=== PATIENT | male | born 1960 | race Caucasian/White ===

== ENCOUNTER 2017-10-24 02:36 | Inpatient (IN) | payer OTHER ==
--- NOTE | 2017-10-16 11:52 | History & Physical Pre-Op ---
General Information and HPI MD Statement: I have seen and personally examined JAS VERDUZCO and documented this H&P. The patient is a 56 year old M who presented with a patient stated chief complaint of low back pain for "years" radiating to bilateral lower extremities R>L with weakness. Source of Information: patient Exam Limitations: no limitations History of Present Illness: Jas is a 56-year-old gentleman who has had bilateral low back pain for "years ". He states the pain radiates from his low back and into bilateral lower extremities which is worse with standing or walking with symptoms of classic neurogenic claudication. He states the right leg is more affected than the left with associated numbness and pain in his posterior thigh and calf. He does admit to weakness in bilateral lower extremities with associated buckling. His symptoms are relieved when sitting or laying down. His MRI shows complete block at L3-4 and severe spinal stenosis at L4-5. Due to his progressive pain and weakness as well as his MRI findings, Jas wants nothing more to do with nonsurgical treatment and has been consented for a posterior lumbar decompression and fusion with iliac crest bone grafting L3-S1 on 10/24/2017. 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 FATHER, ; Cause: Unknown cause of morbidity or mortality. SISTER (Diabetes). Psychosocial History Where Do You Live? Home Who Do You Live With? 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 Exam & Diagnostic Data Last 24 Hrs of Vital Signs/I&O Height: 5'5" Weight: 165lbs. Physical Exam General Appearance Alert, Oriented X3, Cooperative, Moderate Distress Skin No Rashes, No Breakdown, No Significant Lesion HEENT Atraumatic, PERRLA, EOMI, Mucous Membr. moist/pink Neck Supple, No JVD, No thryomegaly Lymphatic Cervical nl Cardiovascular Regular Rate, Normal S1, Normal S2, No Murmurs Lungs Clear to Auscultation Abdomen Normal Bowel Sounds, Soft, No Tenderness Neurological Normal Speech, Atrophy of the quads bilaterally, Absent patellar reflexes alanna., +2 alanna. achilles reflexes Extremities No Clubbing, No Cyanosis, No Edema Medication List Current Psychiatric Med(s): Tylenol 500mg 1 po q 4-6 hrs prn pain Assessment/Plan Assessment/Plan: Assessment: Severe spinal stenosis at L3-4 and L4-5 and moderate stenosis at L5- S1 Plan: Jas is scheduled for a posterior lumbar decompression fusion with iliac crest bone grafting L3-S1 on 10/24/2017. We discussed the procedure in full detail as well as the pre-and postoperative course, follow-up care, and anticipated recovery. We also discussed the do's and don'ts and postoperative discharge instructions. We discussed the alternatives, benefits, and risks, not to exclude, , paralysis, infection, bleeding, continued pain, failure of the surgery, need for future surgery, DVT, vascular injury, CSF leak, etc., and given these risks, he still wishes to proceed. He has been seen by his primary care physician followed by a fast food cook for preoperative clearance. He is scheduled for an echocardiogram, stress test, and carotid duplex. Any changes in this patient's plan is based on this patient's outpatient clinical presentation. As Ranked By This Provider Problem List: 1. TIA (transient ischemic attack) 2. COPD (chronic obstructive pulmonary disease) 3. PVD (peripheral vascular disease) 4. Hypertension 5. Hyperlipidemia Copies To: Pramod SANCHEZ,Gasper Attending MD Review Statement Attending Statement Attending MD Statement: examined this patient, discuss w/resident/PA/BIOMETRICIAN, agreed w/resident/PA/BIOMETRICIAN, reviewed images
[~2017-10-24] VITALS: Ht 167.6 cm; Wt 75.4 kg
--- NOTE | 2017-10-24 12:47 | Operative Report ---
Operative/Inv Procedure Report Surgery Date: 10/24/17 Name of Procedure: Lumbar laminectomies L3 4 4551 bilateral lateral intertransverse process fusion L3 to S1 bilateral. Harvesting of morselized iliac crest right posterior iliac crest. Reconstruction of crest with Master graft. Use of fluoroscopy neuro lysis neuro lysis right side L3 and IV nerve roots Pre-Operative Diagnosis: Severe spinal stenosis and foraminal stenosis L3 4 4 5 moderate stenosis L5-S1 Post-Operative Diagnosis: Same Estimated Blood Loss: 200cc Surgeon/Wellness Guide: Pramod SANCHEZ,Gasper Coffman M.D. Anesthesia: general endotracheal tube Operative/Procedure Note Note: After adequate general anesthesia was achieved the patient was placed in the prone position. The back was sterilely prepped and draped. An incision was made in the midline and carried down over the dorsal elements with electrocautery and a metallic object was placed and fluoroscopy was used to identify surgical level. The dissection was carried from the inferior aspect of the lamina of L3 to this. Aspect of the lamina of S1 bilaterally. The high- speed bur was used to thin the lamina bilaterally and the spinous processes were removed with the Leksell from L3 to L5 and left intact at L5-S1. After thickening of the cortices of the lamina the curettes and Kerrisons were used to perform the laminectomies bilaterally over the inferior aspect of L3 the entire aspect of L4 the superior aspect of L5 the inferior aspect of L5 and the superior aspect of S1 bilaterally. There is severe thickening of the mentum flavum at L3 4 and L4 5 bilaterally and severe foraminal stenosis which was all debrided. Partial facetectomies were performed involving approximately 20% of the foramen bilaterally. There is a large disc herniation laterally at L3 4 on the left. The disc was easily removed the nerves on the right side had a great deal of fibrous adhesions and a neuro lysis was performed on the right side at L3 and L4 nerve roots. The left side nerve roots were intact. An incision was made over the right posterior iliac crest the Shahrzad retractor was placed lateral to the crest and the osteotomes and curet were used to collect morcellized corticocancellous and cancellous bone the wound was then irrigated packed with Master graft. Gelfoam was applied it was again irrigated and a closure the subcutaneous tissue and fascia was performed with absorbable suture the skin was closed with urszula. The midline retractors were placed and was copiously irrigated the lateral intertransverse process region was decorticated with the high-speed bur from L3 to S1 bilaterally and bone graft was packed laterally over this region the wound was again irrigated Gelfoam was laid over the laminotomy site and a closure of the lumbosacral fashion subcutaneous tissues performed with absorbable suture the skin was closed with urszula after placement sterile dressings the patient was log rolled on to the stretcher and taken the recovery room
--- NOTE | 2017-10-24 14:40 | Patient Discharge Instructions ---
Acute Coronary Syndrome Inclusion Criteria At DC or during hospital stay patient has or had the following: ACS DIAGNOSIS No Discharge Core Measures Meds if any: Prescribed or Continued at Discharge Meds if any: NOT Prescribed or Continued at Discharge Congestive Heart Failure Inclusion Criteria At DC or during hospital stay patient has or had the following: CHF DIAGNOSIS No Discharge Core Measures Meds if any: Prescribed or Continued at Discharge Meds if any: NOT Prescribed or Continued at Discharge Cerebrovascular accident Inclusion Criteria At DC or during hospital stay patient has or had the following: CVA/TIA Diagnosis No Discharge Core Measures Meds if any: Prescribed or Continued at Discharge Meds if any: NOT Prescribed or Continued at Discharge Venous thromboembolism Inclusion Criteria VTE Diagnosis No VTE Type NONE VTE Confirmed by (Test) NONE Discharge Core Measures - Per Current guidelines, there needs to be overlap - treatment for the first 5 days of Warfarin therapy. - If discharged on Warfarin prior to 5 days of - overlap therapy, the patient will need to be - assessed for post discharge needs including - *Post discharge parental anticoagulation - *Warfarin and/or parental anticoagulation education - *Follow up date to check INR post discharge At least 5 days overlap therapy as Inpatient No Meds if any: Prescribed or Continued at Discharge Note: Overlap Therapy is Warfarin and Anticoagulant Meds if any: NOT Prescribed or Continued at Discharge
--- NOTE | 2017-10-24 14:40 | RADIOLOGY REPORT ---
EXAMINATION: CR ABDOMEN/INTRAOPERATIVE FLUOROSCOPY CLINICAL INDICATION: Lumbar laminectomy L3-S1. Fusion in OR. COMPARISON: None TECHNIQUE/FINDINGS: Fluoroscopic equipment was dedicated to the operating room for the performance of an intraoperative procedure. Single spot film was acquired and are archived in PACS. Please refer to operative notes for procedural detail. FLUOROSCOPY TIME: 0.01 minutes. IMPRESSION: Administrative dictation for intraoperative fluoroscopy and image archiving in PACS. Please refer to operative notes for details.
[2017-10-24] MEDS ORDERED: OS-CAL 500+D31 EAC1 PO (14:43)
[2017-10-24] MEDS ORDERED: COLACE100 M1 PO (14:43)
[2017-10-24] MEDS ORDERED: VITAMIN D31000 UNI2 PO (14:43)
[2017-10-24] MEDS ORDERED: MILK OF MA400 MG/52 PO (14:43)
[2017-10-24] MEDS ORDERED: MULTIVITAMINS1 EAC9 PO (14:43)
[2017-10-24] MEDS ORDERED: TYLENOL EXTRA500 M2 PO (14:43)
[2017-10-24] MEDS ORDERED: DULCOLAX10 M1 RC (14:43)
[2017-10-24] MEDS ORDERED: OXYCODONE HCL5 M1 PO (14:43)
--- NOTE | 2017-10-24 14:59 | Cons- Medical ---
LilliGeoff 10/24/17 1459: General Information and HPI Consulting Request Date of Consult: 10/24/17 Requested By: Gasper Benavidez MD Reason for Consult: Co- management Source of Information: patient, old records Exam Limitations: no limitations History of Present Illness: is a 56 yo man with PMHx. of TIA, hypertension, hyperlipidemia, DVT , COPD, chronic back pain, disc herniation, spinal stenosis, osteoarthritis, sciatica, alcohol dependence, diabetes, presented to emergency department for s/ p Lumbar laminectomies L3 4 4551 bilateral lateral intertransverse process fusion L3 to S1 bilateral. Today is day 0 postoperatively Patient drinks alcohol daily, he drinks 2 beers aday, he is every day smoker. Medicine consult requested for comanagement given multiple comorbidities. Patient seen after the procedure, he denies any chest pain, SOB, dizziness, palpitation, his only complaint was back pain, he was medicated with oxycontin and Morphine. Allergies/Medications Allergies: Coded Allergies: No Known Allergies (10/16/17) Review of Systems Review of Systems Constitutional: Reports: no symptoms. EENTM: Reports: no symptoms. Cardiovascular: Reports: no symptoms. Respiratory: Reports: no symptoms. GI: Reports: no symptoms. Genitourinary: Reports: no symptoms. Musculoskeletal: Reports: back pain. Skin: Reports: no symptoms. Neurological/Psychological: Reports: no symptoms. 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 FATHER, ; Cause: Unknown cause of morbidity or mortality. SISTER (Diabetes). Psychosocial History Where Do You Live? Home Who Do You Live With? 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 Exam & Diagnostic Data Last 24 Hrs of Vital Signs/I&O Vital Signs Date Time Temp Pulse Resp B/P B/P Pulse O2 O2 Flow FiO2 Mean Ox Delivery Rate 10/24 1817 Room Air Room Air 10/24 1502 94 Room Air 10/24 1502 97.8 78 18 142/82 94 Room Air Intake & Output 10/24 1600 10/24 0800 10/24 0000 Intake Total Output Total Balance Patient 169 lb Weight Weight Bed scale Measurement Method Physical Exam General Appearance: well developed/nourished, no apparent distress, alert, awake Head: atraumatic, normal appearance Neck: normal inspection, supple Respiratory: normal breath sounds, chest non-tender, no respiratory distress Cardiovascular: regular rate/rhythm, normal peripheral pulses Extremities: normal inspection, normal capillary refill, no edema Last 24 Hrs of Labs/Lane: No labs Assessment/Plan Assessment/Plan is a 56 yo man with PMHx. of TIA, hypertension, hyperlipidemia, DVT , COPD, chronic back pain, disc herniation, spinal stenosis, osteoarthritis, sciatica, alcohol dependence, diabetes, presented to emergency department for s/ p Lumbar laminectomies L3 4 4551 bilateral lateral intertransverse process fusion L3 to S1 bilateral. Today is day 0 postoperatively Assessment: #S/P Lumbar laminectomies #Hx. of alcohol dependence #Hx, of HTN/HLD #Hx. of COPD #Hx. of DM #Hx. of DVT Plan: * Pain amngt as orderd by surgical team * CIWA protocol, Ativan per CIWA * PT * Accucheck * DVT ppx Problem List: 1. Spinal stenosis of lumbar region at multiple levels 2. S/P laminectomy with spinal fusion Consult Acknowledgment - Thank you for your consult request. Reji Santoyo MD 10/24/172202: General Information and HPI Allergies/Medications Home Med List: Acetaminophen (Tylenol Extra Strength) 500 MG TABLET 1 TAB PO TID PRN TEMP>101 Aspirin (Aspirin*) 81 MG TAB.CHEW 81 MG PO DAILY PVD Atorvastatin Calcium 40 MG TABLET 40 MG PO 1700 HYPERLIPIDEMIA Bisacodyl (Dulcolax) 10 MG SUPP.RECT 1 SUP RC DAILY PRN CONSTIPATION Calcium Carbonate/Vitamin D3 (Os-Devyn 500+D3 Caplet) 500 MG-200 TABLET 1 TAB PO BID [facility] Cholecalciferol (Vitamin D3) 1,000 UNIT TABLET 1 TAB PO DAILY [facility] Docusate Sodium (Colace) 100 MG CAPSULE 1 CAP PO BID PRN CONSTIPATION Magnesium Hydroxide (Milk Of Magnesia) 400 MG/5 ML ORAL.SUSP 5 ML PO Q8P PRN CONSTIPATION Multiple Vitamin (Multivitamins) 1 EACH TABLET 1 TAB PO DAILY GENER[facility] Oxycodone HCl 5 MG TABLET 5 MG PO Q4 HRS NEEDED PRN PAIN SCALE 1-3 (MILD) 1-2 TABS PO Q 4-6 HRS PRN PAIN Assessment/Plan Consult Acknowledgment - Thank you for your consult request. Attending MD Review Statement Attending Statement Attending MD Statement: examined this patient, discuss w/resident/PA/REPAIR COIL WINDER, agreed w/resident/PA/REPAIR COIL WINDER, discussed with family, reviewed EMR data (avail), amended to note Attending Assessment/Plan: The patient is a 56 yo male with h/o TIA, HTN, COPD, HL, DVT, OA, pre-diabetes, chronic back pain (spinal stenosis), and EtOH overuse who presented for elective L3-S1 laminectomies. His pre-operative evaluation was performed by Dr. Colin ( cardiology in [facility]) who had performed a stress test (was submaximal due to leg discomfort), ECHO cardiogram (mild diastolic dysfunction), and carotid US (< 50% stenosis). He was noted to have no exertional symptoms (angina/dyspnea) and was felt able to tolerate surgery. Note systolic pressure did drop to 80's during surgery. Post operatively the patient had no complaints except usual post op pain. Was alert & oriented. No chest pain, palpitations, weakness, etc. Physical Exam: VS: T 97.8, P 78, R 18, BP 142/82, PO 94% RA HEENT: eris- moist mucosa w/o lesions Neck: no bruits or JVD Cor: RRR nl S1, S2 w/o murm Abd: BS+, soft, NT, - HSM Ext: no edema Neuro: alert & oriented, non-focal exam, LLE neuro exam not done Impression/Plan: #Spinal Stenosis- s/p lumbar laminectomies as above. Plan: Post op care as per surgery. #h/o TIA/Carotid disease/PVD- no significant carotid stenosis on carotid US done pre-op. Unclear that patient is not on statin or ASA as OP (would hold ASA with current surgery anyway). Details of TIA are unknown. Note- the patient has some carotid plaques, however not hemodynamically significant. Had some claudication symptoms with stress test. Plan: Will review old records and evaluate why patient is not on statin. Avoid hypotension with h/o carotid plaques. #h/o EtOH Overuse- no h/o withdrawal in past. No evidence of withdrawal at present. 3-4 beers/day. Plan: Agree with MVI, folate, thiamine po- CIWA and Ativan prn. Watch closely for withdrawal symptoms. #COPD- by history, however lungs are clear and pulse ox mildly reduced (probably due to atelectasis). No CXR done. Plan: Monitor pulse ox and pulmonary exam. Agree with incentive spirometry. If develops wheeze or pulmonary symptoms- TRC nebs. #HTN- by history, however no meds reported. BP good at present. Plan: Monitor BP as per usual post op protocol. #Pre-Diabetes- by history. No meds. Plan: Follow glucoscans. #Cardiac- Pre-op ECHO shows mild diastolic dysfunction, no h/o CHF/angina/ exertional symptoms and negative pre-op stress test. Report indicates submaximal HR due to leg symptoms. No pharmacologic stress done. EKG normal. RCRI is low. Plan: Will observe. No need for cardiac monitoring. #H/O DVT- by history. He is at increased risk of clot due to history, recent surgery, immobility. Unable to use Lovenox/heparin due to laminectomy. Plan: ALPS for DVT prophylaxis and monitor symptoms.
[2017-10-24 15:02] VITALS: BP 142/82
--- NOTE | 2017-10-24 15:25 | PN- Neurosurgical ---
Subjective Subjective: POST-OP CHECK pt in bed laying flat, minimal pain. deneis paresthesias. No N/V. has not voided yet no cp/sob/cunningham Objective Vital Signs and I&Os Intake & Output 10/24 1600 10/24 0800 10/24 0000 10/23 1600 10/23 0800 10/23 0000 Intake Total Output Total Balance Patient 164 lb Weight Physical Exam: gen- nad resp- good effort, mild rhonchi on left side cardio- rrr abd- soft, NT ext- distal sensory and motor function intact. strength equal in lower extremities. 1+ PT pulse bilat Current Medications: Current Medications Sig/Thien Start time Last Medication Dose Route Stop Time Status Admin Acetaminophen 650 MG Q4P PRN 10/24 1430 AC PO Bisacodyl 10 MG DAILY NEEDED PRN 10/24 1430 AC ND Calcium 600 MG BID 10/24 2200 AC PO Cefazolin Sodium 1,000 MG IQ8 10/24 1600 AC IV 10/25 0801 Cefazolin Sodium 2,000 MG ONCE 10/24 0000 NR IV 10/24 2359 Cholecalciferol 1,000 IU DAILY 10/25 1000 AC PO Docusate Sodium 100 MG TID 10/24 1600 AC PO Lactated Ringer's 1,000 ML Q10H 10/24 1445 AC IV Lorazepam 0.5 MG Q4 PRN 10/24 1445 AC PO 10/31 1444 Magnesium Hydroxide 30 ML Q8P PRN 10/24 1445 AC PO Morphine Sulfate 1 MG Q3P PRN 10/24 1430 AC IV Multivitamins 1 TAB DAILY 10/25 1000 AC PO Ondansetron HCl 4 MG Q6P PRN 10/24 1430 AC IV Oxycodone HCl 5 MG Q4 HRS NEEDED PRN 10/24 1445 AC PO Oxycodone HCl 10 MG Q4 HRS NEEDED PRN 10/24 1445 AC PO Trimethobenzamide HCl 200 MG Q6P PRN 10/24 1430 AC IM Assessment/Plan Assessment/Plan 56yo M SP L3-S1 lami and fusion with bone from iliac crest POD0. Stable. Per pt, he is a smoker and drinks on average 2 beers per day but it used to be more. Physical therapy- [facility] Pain management with oxycodone and morphine Adivan prn ordered if pt starts detoxing from ETOH may consider nicotine patch if needed paolo-op ABX for 24h\ dvt ppx- ALPs and early ambulation hx of htn and hld but not treated with medication reg diet- will dc IVF in AM Core Measures Venous Thromboembolism VTE Risk Factors Surgery No Mechanical VTE Prophylaxis d/t N/A MechProphylax Ordered No VTE Pharm Prophylaxis d/t Surgical Contraindication
--- NOTE | 2017-10-24 15:27 | Admission Core Measures ---
Acute Coronary Syndrome (CM) ACS Core Measures Acute Coronary Syndrome Diagnosis No Congestive Heart Failure (NEW) CHF Core Measures Congestive Heart Failure Diagnosis No Cerebrovascular Accident (NEW) CVA Core Measures CVA/TIA Diagnosis No Venous Thromboembolism VTE Core Mary (View Protocol) VTE Risk Factors Surgery No Mechanical VTE Prophylaxis d/t N/A MechProphylax Ordered No VTE Pharm Prophylaxis d/t Surgical Contraindication Problem List As ranked by this Provider includes Assessment & Plan 1. Spinal stenosis of lumbar region at multiple levels HOME MEDS Home Med List Acetaminophen (Tylenol Extra Strength) 500 MG TABLET 1 TAB PO TID PRN TEMP>101 Bisacodyl (Dulcolax) 10 MG SUPP.RECT 1 SUP RC DAILY PRN CONSTIPATION Calcium Carbonate/Vitamin D3 (Os-Devyn 500+D3 Caplet) 500 MG-200 TABLET 1 TAB PO BID [facility] Cholecalciferol (Vitamin D3) 1,000 UNIT TABLET 1 TAB PO DAILY [facility] Docusate Sodium (Colace) 100 MG CAPSULE 1 CAP PO BID PRN CONSTIPATION Magnesium Hydroxide (Milk Of Magnesia) 400 MG/5 ML ORAL.SUSP 5 ML PO Q8P PRN CONSTIPATION Multiple Vitamin (Multivitamins) 1 EACH TABLET 1 TAB PO DAILY [facility] Oxycodone HCl 5 MG TABLET 5 MG PO Q4 HRS NEEDED PRN PAIN SCALE 1-3 (MILD)
[2017-10-24 22:00] VITALS: BP 150/64
[2017-10-25] VITALS (7 sets, daily range): BP systolic 150–170; BP diastolic 60–90
--- NOTE | 2017-10-25 07:24 | PN- Neurosurgical ---
Subjective Subjective: Patient with complaints of a lot of pain, right side low back radiating into the right buttock, states he did not sleep most of the night, pain medication has been minimally effective. He denies any numbness or weakness, he has no bowel or bladder incontinence, he is urinating without difficulty Objective Vital Signs and I&Os Vital Signs Date Time Temp Pulse Resp B/P B/P Pulse O2 O2 Flow FiO2 Mean Ox Delivery Rate 10/25 0000 98.3 88 18 150/64 10/24 2200 98.3 88 2 150/64 94 Room Air 10/24 1817 Room Air Room Air 10/24 1502 94 Room Air 10/24 1502 97.8 78 18 142/82 94 Room Air Intake & Output 10/25 0810/25 0000 10/24 1600 10/24 0810/24 0000 10/23 1600 Intake Total 830 480 680 Output Total 800 750 Balance 30 -270 680 Intake, IV 810 Intake, Oral 20 480 680 Output, Urine 800 750 Patient 169 lb 164 lb Weight Weight Bed scale Measurement Method Physical Exam: Well-developed well-nourished, appears uncomfortable HEENT: Atraumatic, extraocular motion intact Neck: Supple, no lymphadenopathy Respiratory: No respiratory distress Back: Dressing clean dry and intact Extremities: No edema, no calf pain bilateral lower extremities are neurovascularly intact with sensation motor grossly intact. Neuro: Alert and oriented x3 Psych: Mood affect normal, normal memory normal judgment. Skin: Warm and dry, no rash on exposed skin Assessment/Plan Assessment/Plan 56yo M POSTOP DAY #1 STATUS POST L3-S1 lami and fusion with bone from iliac crest POD0. Stable. Physical therapy- WBAT Inadequate pain control, will increased medications Continue CIWA due to EtOH use chronically, appreciate medicine follow-up paolo-op ABX for 24h dvt ppx- ALPs and early ambulation hx of htn and hld but not treated with medication reg diet DC IV fluids Dressing change postop day 2 Core Measures Venous Thromboembolism VTE Risk Factors Surgery No Mechanical VTE Prophylaxis d/t N/A MechProphylax Ordered No VTE Pharm Prophylaxis d/t Surgical Contraindication
--- NOTE | 2017-10-25 08:34 | PN- Medicine Consult ---
[facility] Assessment/PlanMedical Consult Assessment/Plan Assessment: is a 56 yo man with PMHx. of TIA, hypertension, hyperlipidemia, DVT , COPD, chronic back pain, disc herniation, spinal stenosis, osteoarthritis, sciatica, alcohol dependence, diabetes, presented to emergency department for s/ p Lumbar laminectomies L3 4 4551 bilateral lateral intertransverse process fusion L3 to S1 bilateral. Today is day 1 postoperatively Plan: is a 56 yo man with PMHx. of TIA, hypertension, hyperlipidemia, DVT , COPD, chronic back pain, disc herniation, spinal stenosis, osteoarthritis, sciatica, alcohol dependence, diabetes, presented to emergency department for s/ p Lumbar laminectomies L3 4 4551 bilateral lateral intertransverse process fusion L3 to S1 bilateral. Today is day 0 postoperatively Assessment: #S/P Lumbar laminectomies #Hx. of alcohol dependence #Hx, of HTN/HLD #Hx. of COPD #Hx. of DM #Hx. of DVT Plan: * Pain amngt as orderd by surgical team (Would suggest adding long acting opiod and morphine for breakthrough) * CIWA protocol, Ativan per CIWA * PT * Accucheck * DVT ppx Family was asking about discharge plan, I explained that it's per surgical team, if the desicion made regarding STR case management will discuss with them. Problem List: 1. S/P laminectomy with spinal fusion Subjective Subjective: Seen and examined, still in pain. His family at bedside, he is using his spirometry No bowel movement BUT passing tien CIWA is 0 overnight and today Vitals stable No events overnight Review of Systems Constitutional: Reports: no symptoms. EENTM: Reports: no symptoms. Cardiovascular: Reports: no symptoms. Respiratory: Reports: no symptoms. Gastrointestinal: Reports: no symptoms. Genitourinary: Reports: no symptoms. Musculoskeletal: Reports: no symptoms. Skin: Reports: no symptoms. Neurological/Psychological: Reports: no symptoms. Hematologic/Endocrine: Reports: no symptoms. Immunologic/Allergic: Reports: no symptoms. Objective Last 24 Hrs of Vital Signs/I&O Vital Signs Date Time Temp Pulse Resp B/P B/P Pulse O2 O2 Flow FiO2 Mean Ox Delivery Rate 10/25 0726 98.3 85 18 152/90 93 Room Air 10/25 0000 98.3 88 18 150/64 0404 2200 98.3 88 2 150/64 94 Room Air 04 1817 Room Air Room Air 10/24 1502 94 Room Air 10/24 1502 97.8 78 18 142/82 94 Room Air Intake & Output 10/25 1600 04/ 0800 04/ 0000 Intake Total 830 1160 Output Total 800 750 Balance 30 410 Intake, IV 810 Intake, Oral 20 1160 Output, Urine 800 750 Patient 166 lb Weight Physical Exam General Appearance: well developed/nourished, no apparent distress, alert, awake , mild distress Head: atraumatic, normal appearance Neck: normal inspection, supple Cardiovascular: regular rate/rhythm, normal peripheral pulses Respiratory: normal breath sounds, chest non-tender, no respiratory distress Extremities: normal inspection, no edema Current Medications: Current Medications Sig/Thien Start time Last Medication Dose Route Stop Time Status Admin Acetaminophen 650 MG Q4P PRN 10/24 1430 AC PO Bisacodyl 10 MG DAILY NEEDED PRN 10/24 1430 AC WA Calcium 600 MG BID 10/24 2200 AC 10/25 PO 0842 Cefazolin Sodium 1,000 MG IQ8 10/24 1600 DC 10/25 IV 10/25 0801 0841 Cefazolin Sodium 2,000 MG ONCE 10/24 0000 DC IV 10/24 2359 Cholecalciferol 1,000 IU DAILY 10/25 1000 AC 10/25 PO 0841 Docusate Sodium 100 MG TID 10/24 1600 AC 10/25 PO 0843 Influenza Virus 0.5 ML ONCE ONE 10/24 1615 DC 10/24 Vaccine IM 10/24 1616 2048 Lactated Ringer's 1,000 ML Q10H 10/24 1445 DC 10/25 IV 0533 Lorazepam 0.5 MG Q4 PRN 10/24 1445 AC PO 10/31 1444 Magnesium Hydroxide 30 ML Q8P PRN 10/24 1445 AC PO Morphine Sulfate 2 MG Q3P PRN 10/25 0730 AC 10/25 IV 0841 Morphine Sulfate 1 MG Q3P PRN 10/24 1430 DC 10/25 IV 0344 Multivitamins 1 TAB DAILY 10/25 1000 AC 10/25 PO 0843 Ondansetron HCl 4 MG Q6P PRN 10/24 1430 AC IV Oxycodone HCl 10 MG Q4 HRS NEEDED PRN 10/25 0730 AC PO Oxycodone HCl 15 MG Q4 HRS NEEDED PRN 10/25 0730 AC / PO 1004 Oxycodone HCl 5 MG Q4 HRS NEEDED PRN 10/24 1445 DC PO Oxycodone HCl 10 MG Q4 HRS NEEDED PRN 10/24 1445 DC / PO 0529 Trimethobenzamide HCl 200 MG Q6P PRN 10/24 1430 AC IM Results Last 24 Hrs Lab/Lane Results: No labs Reji Santoyo MD 10/25/175: Attending MD Review Statement Attending Sign Off Attending Cosign Statement: I have: examined this patient, reviewed avalbl EMR data, discussd w/resident/PA/ SHRIMP PEELER, discussed mgmt plan w/radha, discussed mgmt plan w/pt, agreed w/resident/PA/SHRIMP PEELER , amended to note. Other Findings: The patient was seen and discussed with house staff, nursing, and surgical PA. Has h/o TIA approximately 2 years ago and ?claudication symptoms with stress test (?PVD). Has some carotid stenosis. Family states he was to have been on ASA , however he never took. Should be on ASA 81 mg daily along with Atorvastatin 40 mg daily (PA to order). No signs of EtOH withdrawal at present. Still having significant low back pain when the patient stood up, however no weakness in legs noted by Dr. Benavidez. Will continue to follow.
[2017-10-25] MEDS ORDERED: ASPIRIN81 M4 PO (14:55)
[2017-10-25] MEDS ORDERED: ATORVASTATIN CA40 M1 PO (14:55)
--- NOTE | 2017-10-25 16:13 | PN- Orthopedic ---
Subjective Subjective: Patient comfortable now. + c/o LBP radiating to right bone graft site earlier. + intermittnet right leg numbness seamingly postional. No preop leg pain. Julieta. po. OOB with Dr. and Nursing. + appetite. No N/V. + flatus and voiding without difficulty. Review of Systems: Remarkable for the above complaints. Objective Vital Signs and I&Os Vital Signs Date Time Temp Pulse Resp B/P B/P Pulse O2 O2 Flow FiO2 Mean Ox Delivery Rate 10/25 1523 98.0 96 20 160/70 92 10/25 1145 98.0 86 20 150/60 91 10/25 0800 Room Air 10/25 0726 98.3 85 18 152/90 93 Room Air 10/25 0000 98.3 88 18 150/64 10/24 2200 98.3 88 2 150/64 94 Room Air 10/24 1817 Room Air Room Air Intake & Output 10/25 1600 10/25 0800 10/25 0000 10/24 1600 10/24 0800 10/24 0000 Intake Total 980 830 480 680 Output Total 300 800 750 Balance 680 30 -270 680 Intake, IV 100 810 Intake, Oral 880 20 480 680 Number 0 Bowel Movements Output, Urine 300 800 750 Patient 166 lb 169 lb Weight Weight Bed scale Measurement Method Physical Exam General Appearance: no apparent distress Respiratory: normal breath sounds, no respiratory distress Cardiovascular: regular rate/rhythm Abdomen: normal bowel sounds, soft, non-tender Back: Incision C/D/I. Neurologic/Psychiatric: Neurovascularly stable with no new or worsening gross motor or sensory loss in alanna. lower extremities. Skin: intact, normal color, warm/dry Assessment/Plan Assessment/Plan Assessment: s/p PLDF L3-S1 with ICBG Plan: Continue Roxicodone and Morphine prn Ice prn Continue Ativan prn PT for ambulation Will F/U in am Started ASA and Atorvastatin per [facility] recs. Problem List: 1. TIA (transient ischemic attack) 2. COPD (chronic obstructive pulmonary disease) 3. PVD (peripheral vascular disease) 4. Hypertension 5. Hyperlipidemia 6. Spinal stenosis of lumbar region at multiple levels Core Measures Venous Thromboembolism VTE Risk Factors Surgery No Mechanical VTE Prophylaxis d/t N/A MechProphylax Ordered No VTE Pharm Prophylaxis d/t Surgical Contraindication Attending MD Review Statement Attending Statement Attending MD Statement: examined this patient, discuss w/resident/PA/LOGISTICS OPERATIONS DIRECTOR, agreed w/resident/PA/LOGISTICS OPERATIONS DIRECTOR
[2017-10-26] VITALS (9 sets, daily range): BP systolic 124–156; BP diastolic 60–80
--- NOTE | 2017-10-26 08:44 | PN- Medicine Consult ---
Geoff Reeder 10/26/17 0843: Assessment/PlanMedical Consult Assessment/Plan Assessment: is a 56 yo man with PMHx. of TIA, hypertension, hyperlipidemia, DVT , COPD, chronic back pain, disc herniation, spinal stenosis, osteoarthritis, sciatica, alcohol dependence, diabetes, presented to emergency department for s/ p Lumbar laminectomies L3 4 4551 bilateral lateral intertransverse process fusion L3 to S1 bilateral. Today is day 2 postoperatively Plan: is a 56 yo man with PMHx. of TIA, hypertension, hyperlipidemia, DVT , COPD, chronic back pain, disc herniation, spinal stenosis, osteoarthritis, sciatica, alcohol dependence, diabetes, presented to emergency department for s/ p Lumbar laminectomies L3 4 4551 bilateral lateral intertransverse process fusion L3 to S1 bilateral. Today is day 2 postoperatively Assessment: #S/P Lumbar laminectomies #Hx. of alcohol dependence #Hx, of HTN/HLD #Hx. of COPD #Hx. of DM #Hx. of DVT Plan: * Pain amngt as orderd by surgical team (Would suggest adding long acting opiod and morphine for breakthrough) * CIWA protocol, Ativan per CIWA * PT * Accucheck * DVT ppx Problem List: 1. S/P laminectomy with spinal fusion Subjective Subjective: seen and examined no events over night c/o sever back pain Objective Last 24 Hrs of Vital Signs/I&O Vital Signs Date Time Temp Pulse Resp B/P B/P Pulse O2 O2 Flow FiO2 Mean Ox Delivery Rate 04/06 0800 96 Nasal 2.0L Cannula / 0700 98.4 94 18 134/74 94 Nasal 2.0L Cannula /06 0600 98.5 89 20 124/74 04/06 0400 98.5 89 20 124/74 04/06 0221 98.5 89 20 124/74 93 Nasal 2.0L Cannula 04/06 0200 98.5 89 20 124/74 04/06 0000 98.2 93 18 156/70 04/06 0000 94 Nasal 2.0L Cannula / 2323 98.2 / 2323 98.2 / 2245 100.2 93 18 156/70 95 Nasal 2.0L Cannula / 2217 102.4 92 22 170/80 94 Nasal 2.0L Cannula 10/25 2204 102.4 10/25 220 85 Room Air 10/25 1956 98.3 10/25 1819 99.3 90 20 160/72 92 Room Air 10/25 1600 Room Air 10/25 1523 98.0 96 20 160/70 92 Intake & Output 10/26 1600 10/26 0800 04 0000 Intake Total 460 800 Output Total 1800 1650 Balance -1340 -850 Intake, Oral 460 800 Output, Urine 1800 1650 Current Medications: Current Medications Sig/Thien Start time Last Medication Dose Route Stop Time Status Admin Acetaminophen 650 MG .STK-MED ONE 10/26 2203 DC PO 10/25 220 Acetaminophen 650 MG Q4P PRN 10/24 1430 AC 10/25 PO 220 Aspirin 81 MG DAILY 10/25 1453 AC 10/26 PO 0907 Atorvastatin Calcium 40 MG 1700 10/25 1700 AC 10/25 PO 1742 Bisacodyl 10 MG DAILY NEEDED PRN 10/24 1430 AC CO Calcium 600 MG BID 10/24 2200 AC 10/26 PO 0907 Cholecalciferol 1,000 IU DAILY 10/25 1000 AC 10/26 PO 0907 Docusate Sodium 100 MG TID 10/24 1600 AC 10/26 PO 0907 Lorazepam 0 Q1P PRN 10/25 1845 AC IV Lorazepam 0.5 MG Q4 PRN 10/24 1445 AC 10/25 PO 10/31 1444 1933 Magnesium Hydroxide 30 ML Q8P PRN 10/24 1445 AC PO Morphine Sulfate 2 MG Q3P PRN 10/25 0730 DC 10/26 IV 0911 Multivitamins 1 TAB DAILY 10/25 1000 AC 10/26 PO 0906 Ondansetron HCl 4 MG Q6P PRN 10/24 1430 AC IV Oxycodone HCl 10 MG Q4 HRS NEEDED PRN 10/25 0730 AC PO Oxycodone HCl 15 MG Q4 HRS NEEDED PRN 10/25 0730 AC 10/26 PO 1319 Patient Medication 1 ED ONE ONE 10/26 1330 DC Teaching ED 10/26 1331 Trimethobenzamide HCl 200 MG Q6P PRN 10/24 1430 AC IM Results Last 24 Hrs Lab/Lane Results: Laboratory Tests 10/26/17 1057: CBC w Diff NO MAN DIFF REQ, RBC 4.34 L, MCV 87.2, MCH 29.4, MCHC 33.7, RDW 13.9 , MPV 9.2, Gran % 81.1 H, Lymphocytes % 8.3 L, Monocytes % 10.3 H, Eosinophils % 0.3, Basophils % 0, Absolute Granulocytes 12.6 H, Absolute Lymphocytes 1.3, Absolute Monocytes 1.6 H, Absolute Eosinophils 0.1, Absolute Basophils 0 Microbiology 10/26 1250 STOOL: Stool Culture - COLB Reji Santoyo MD 10/26/178: Attending MD Review Statement Attending Sign Off Attending Cosign Statement: I have: examined this patient, reviewed avalbl EMR data, discussd w/resident/PA/ SEWING MACHINE OPERATOR PLASTIC ZIPPER, discussed mgmt plan w/radha, amended to note. Other Findings: The patient was seen earlier this morning. He was drowsy due to pain medication. Nursing reported that he c/o severe back pain. No other complaints noted. Noting no note from orthopedics today. Reviewed resident note from today and chart. The patient had spiked a temperature of 102.4 last pm at 10 pm and it is unclear if anyone was notified as there were no cultures done. Also WBC elevated 15.5 with left shift. Stool was ordered and follow-up CBC/BEP tomorrow by surgical PA. He is afebrile this evening. He had no dyspnea, cough, or abdominal pain at time of my exam. Spoke with Vp Public Relations & resident construction operations manager. Will obtain U/A-C&S, CXR, ? blood cultures if febrile. Concern regarding potential infection. Surgical PA will be notified by Dr. Sosa to evaluate patient as there is no surgical note in chart from today.
[2017-10-26 11:53] LABS: ABSOLUTE BASOPHIL COUNT 0 /CUMM (0.0-0.2); ABSOLUTE LYMPH COUNT 1.3 /CUMM (1.2-3.4); ABSOLUTE MONOCYTE COUNT 1.6 /CUMM (0.10-0.60); MEAN CORPUSCULAR HGB CONC 33.7 G/DL (33.0-37.0); MEAN PLATELET VOLUME 9.2 FL (7.4-10.4); PLATELET COUNT 170 /CUMM (130-400)
[2017-10-26 12:03] LABS: ABSOLUTE EOSINOPHIL COUNT 0.1 /CUMM (0.0-0.7); ABSOLUTE GRANULOCYTE CT 12.6 /CUMM (1.4-6.5); BASOPHIL % 0 % (0.0-2.0); EOSINOPHIL % 0.3 % (0-5); GRANULOCYTE % 81.1 % (42.2-75.2); MEAN CORPUSCULAR HGB 29.4 PG (27.0-31.0); MEAN CORPUSCULAR VOLUME 87.2 FL (80.0-94.0); RBC DISTRIBUTION WIDTH 13.9 % (11.5-14.5); RED BLOOD CELL CT 4.34 /CUMM (4.70-6.10)
[2017-10-26 12:05] LABS: HEMATOCRIT 37.8 % (42-52); WHITE BLOOD CELL COUNT 15.5 /CUMM (4.8-10.8)
[2017-10-26] MEDS ORDERED: OXYCODONE HCL5 M1 PO (19:06)
[2017-10-26] MEDS ORDERED: OXYCODONE HCL10 M2 PO (19:06)
--- NOTE | 2017-10-26 23:12 | RADIOLOGY REPORT ---
EXAMINATION: XR PORTABLE CHEST CLINICAL INFORMATION: Febrile COMPARISON: None TECHNIQUE: Portable frontal view of the chest was obtained. FINDINGS: The lungs are well expanded. There is a patchy left basilar opacity. The right lung is clear. No pleural effusion or pneumothorax. The cardiomediastinal silhouette is unremarkable. IMPRESSION: Left basilar opacity which could represent atelectasis or pneumonia.
[2017-10-27 06:19] VITALS: BP 112/68
[2017-10-27 09:02] LABS: ABSOLUTE BASOPHIL COUNT 0.1 /CUMM (0.0-0.2); ABSOLUTE EOSINOPHIL COUNT 0.1 /CUMM (0.0-0.7); ABSOLUTE GRANULOCYTE CT 7.7 /CUMM (1.4-6.5); ABSOLUTE LYMPH COUNT 1.8 /CUMM (1.2-3.4); ABSOLUTE MONOCYTE COUNT 1.6 /CUMM (0.10-0.60); BASOPHIL % 0.5 % (0.0-2.0); GRANULOCYTE % 68.1 % (42.2-75.2); HEMATOCRIT 34.2 % (42-52); MEAN CORPUSCULAR HGB 29.4 PG (27.0-31.0); MEAN CORPUSCULAR HGB CONC 33.9 G/DL (33.0-37.0); MEAN CORPUSCULAR VOLUME 86.9 FL (80.0-94.0); MEAN PLATELET VOLUME 9.1 FL (7.4-10.4); PLATELET COUNT 188 /CUMM (130-400); RBC DISTRIBUTION WIDTH 13.8 % (11.5-14.5); RED BLOOD CELL CT 3.93 /CUMM (4.70-6.10); WHITE BLOOD CELL COUNT 11.4 /CUMM (4.8-10.8)
[2017-10-27] MEDS ORDERED: ROXICODONE15 M1 PO (13:06)
[2017-10-27 14:12] VITALS: BP 170/80
--- NOTE | 2017-10-27 14:27 | PN- Att Addend ---
Attending Addendum Attending Brief Note Patient seen and examined. Plan of care discussed with the medical team and the patient. Available lab work and radiology test reports were reviewed. Patient currently awake alert oriented. He complains of for lower back pain with the spasms. He denies any fever chills any chest pain or difficulty breathing. Exam: General: Patient awake alert oriented without any distress CVS: S1 plus S2 without any murmur or gallops Chest: Few scattered crepitation without any wheeze. There is no respiratory distress. Abdomen: Soft non-tender, bowel sound present, no guarding or rebound UNCRATER: Awake alert oriented without any focal neuro deficit and follows commands appropriately Extremities: No edema; no clubbing or cyanosis noted Assessment Status post L3 S1 laminectomy and fusion Back pain Postoperative fever now resolved Bibasilar atelectasis Plan Continue to monitor fever closely Incentive spirometry Patient was fever again he may need oral antibiotics for possible pneumonia Given that he is currently afebrile and his fever only was transient I will not prescribe antibiotic at this moment Consider diazepam 5 mg every 8 hours oral and Neurontin for spasm and pain control respectively Current Medications Sig/Thien Start time Last Medication Dose Route Stop Time Status Admin Acetaminophen 650 MG .STK-MED ONE 10/27 0237 DC PO 10/27 0238 Acetaminophen 650 MG Q4P PRN 10/24 1430 AC 10/27 PO 0243 Aspirin 81 MG DAILY 10/25 1453 AC 10/27 PO 1000 Atorvastatin Calcium 40 MG 1700 04/ 1700 AC 10/26 PO 1651 Bisacodyl 10 MG DAILY NEEDED PRN 10/24 1430 AC [place] Calcium 600 MG BID 10/24 2200 AC 10/27 PO 1000 Cholecalciferol 1,000 IU DAILY 10/25 1000 AC 10/27 PO 1000 Docusate Sodium 100 MG TID 10/24 1600 AC 10/27 PO 1000 Lorazepam 0 Q1P PRN 10/25 1845 AC IV Lorazepam 0.5 MG Q4 PRN 10/24 1445 AC 10/25 PO 10/31 1444 1933 Magnesium Hydroxide 30 ML Q8P PRN 10/24 1445 AC PO Multivitamins 1 TAB DAILY 10/25 1000 AC 10/27 PO 1000 Ondansetron HCl 4 MG Q6P PRN 10/24 1430 AC IV Oxycodone HCl 10 MG Q4 HRS NEEDED PRN 04/05 0730 AC PO Oxycodone HCl 15 MG Q4 HRS NEEDED PRN 10/25 07 AC 10/27 PO 1001 Trimethobenzamide HCl 200 MG Q6P PRN 10/24 1430 AC IM Laboratory Tests 10/27/17 0735: Anion Gap 11, Estimated GFR > 60, BUN/Creatinine Ratio 23.3, CBC w Diff NO MAN DIFF REQ, RBC 3.93 L, MCV 86.9, MCH 29.4, MCHC 33.9, RDW 13.8, MPV 9.1, Gran % 68.1, Lymphocytes % 15.9 L, Monocytes % 14.5 H, Eosinophils % 1.0, Basophils % 0.5, Absolute Granulocytes 7.7 H, Absolute Lymphocytes 1.8, Absolute Monocytes 1.6 H, Absolute Eosinophils 0.1, Absolute Basophils 0.1 10/26/17 1057: CBC w Diff NO MAN DIFF REQ, RBC 4.34 L, MCV 87.2, MCH 29.4, MCHC 33.7, RDW 13.9 , MPV 9.2, Gran % 81.1 H, Lymphocytes % 8.3 L, Monocytes % 10.3 H, Eosinophils % 0.3, Basophils % 0, Absolute Granulocytes 12.6 H, Absolute Lymphocytes 1.3, Absolute Monocytes 1.6 H, Absolute Eosinophils 0.1, Absolute Basophils 0 Microbiology 10/27 0210 URINE ROUT: Urine Culture - RECD 10/26 2340 BLOOD: Blood Culture - RECD 10/26 2320 BLOOD: Blood Culture - RECD 10/26 1419 STOOL: Clostridium difficile Toxin A & B - CAN Cancelled: NO SAMPLE COLLECTED 10/27 1199 STOOL: Stool Culture - RES Vital Signs Date Time Temp Pulse Resp B/P B/P Pulse O2 O2 Flow FiO2 Mean Ox Delivery Rate 10/27 1412 98.5 93 20 170/80 93 10/27 0619 98.4 80 18 112/68 96 Nasal Cannula 10/27 0000 Nasal 2.0L Cannula 10/26 2243 99.7 91 18 144/80 93 Nasal Cannula 10/26 1727 97.3 96 22 148/60 92 Nasal 2.0L Cannula 10/26 1600 92 Nasal 2.0L Cannula Intake & Output 10/27 1600 10/27 0800 10/27 0000 Intake Total 300 100 100 Output Total 1925 550 Balance 300 -1825 -450 Intake, Oral 300 100 100 Number 0 Bowel Movements Output, Urine 7631 299
--- NOTE | 2017-10-27 14:35 | PN- Orthopedic ---
Surgical Brief Attending Note Brief Attending Note: Dr. Benavidez was in to see the patient yesterday and today. Please see paper chart for documentation. Aware of temps, which have been trending down. Patient afebrile at this time. Chest x-ray reveals atelectasis versus pneumonia. Clinical picture favors atelectasis, given pain and lack of deep breathing. We will continue to encourage spirometer and mobilization. Labs are stable. Repeat in the morning.
[2017-10-27 18:00] VITALS: BP 136/66
[2017-10-27 19:00] VITALS: BP 136/66
[2017-10-27 22:00] VITALS: BP 140/64
[2017-10-28 02:05] VITALS: BP 138/72
[2017-10-28 06:20] VITALS: BP 132/60
[2017-10-28 08:25] LABS: ABSOLUTE BASOPHIL COUNT 0 /CUMM (0.0-0.2); ABSOLUTE EOSINOPHIL COUNT 0.3 /CUMM (0.0-0.7); ABSOLUTE GRANULOCYTE CT 5.3 /CUMM (1.4-6.5); ABSOLUTE LYMPH COUNT 2.3 /CUMM (1.2-3.4); ABSOLUTE MONOCYTE COUNT 1.7 /CUMM (0.10-0.60); BASOPHIL % 0.4 % (0.0-2.0); EOSINOPHIL % 3.1 % (0-5); GRANULOCYTE % 54.9 % (42.2-75.2); HEMATOCRIT 33.9 % (42-52); MEAN CORPUSCULAR HGB 29.2 PG (27.0-31.0); MEAN CORPUSCULAR HGB CONC 33.5 G/DL (33.0-37.0); MEAN CORPUSCULAR VOLUME 87.1 FL (80.0-94.0); MEAN PLATELET VOLUME 8.8 FL (7.4-10.4); PLATELET COUNT 252 /CUMM (130-400); RBC DISTRIBUTION WIDTH 13.8 % (11.5-14.5); RED BLOOD CELL CT 3.89 /CUMM (4.70-6.10); WHITE BLOOD CELL COUNT 9.6 /CUMM (4.8-10.8)
--- NOTE | 2017-10-28 12:36 | PN- Att Addend ---
Attending Addendum Attending Brief Note Patient seen and examined. Plan of care discussed with the medical team and the patient. Available lab work and radiology test reports were reviewed. Patient appears to be in distress due to pain. He states that he has severe right leg spasms and pain. He was not able to walk yesterday when he tried needed. Patient currently awake alert oriented. He complains of for lower back pain and right leg pain with the spasms. He denies any fever chills any chest pain or difficulty breathing. Exam: General: Patient awake alert oriented with moderate distress due to pain CVS: S1 plus S2 without any murmur or gallops Chest: Few scattered crepitation without any wheeze. There is no respiratory distress. Abdomen: Soft non-tender, bowel sound present, no guarding or rebound PEG DRIVER: Awake alert oriented without any focal neuro deficit and follows commands appropriately Extremities: No edema; no clubbing or cyanosis noted Assessment Status post L3 S1 laminectomy and fusion Back pain; right leg pain Postoperative fever now resolved Bibasilar atelectasis Plan Continue to monitor fever closely Incentive spirometry If Patient developed fever again he may need oral antibiotics for possible pneumonia Given that he is currently afebrile and his fever only was transient I will not prescribe antibiotic at this moment Consider diazepam 5 mg every 8 hours oral and Neurontin for spasm and pain control respectively; other option would be to add Flexeril when necessary And Neurontin 100 mg 3 times a day for pain control Patient is not stable for discharge given significant pain and inability to ambulate Current Medications Sig/Thien Start time Last Medication Dose Route Stop Time Status Admin Acetaminophen 650 MG .STK-MED ONE 10/28 0344 DC PO 10/28 0345 Acetaminophen 650 MG Q4P PRN 10/24 1430 AC 10/28 PO 0344 Aspirin 81 MG DAILY 10/25 1453 AC 10/28 PO 0848 Atorvastatin Calcium 40 MG 1700 10/25 1700 AC 10/27 PO 1708 Bisacodyl 10 MG DAILY NEEDED PRN 10/24 1430 AC AR Calcium 600 MG BID 10/24 2200 AC 10/28 PO 0847 Cholecalciferol 1,000 IU DAILY 10/25 1000 AC 10/28 PO 0847 Docusate Sodium 100 MG TID 10/24 1600 AC 10/28 PO 0847 Lorazepam 0 Q1P PRN 10/25 1845 AC 10/28 IV 0244 Lorazepam 0.5 MG Q4 PRN 10/24 1445 AC 10/25 PO 10/31 144 1933 Magnesium Hydroxide 30 ML Q8P PRN 10/24 1445 AC PO Multivitamins 1 TAB DAILY 10/25 1000 AC 10/28 PO 0847 Ondansetron HCl 4 MG Q6P PRN 10/24 1430 AC IV Oxycodone HCl 10 MG Q4 HRS NEEDED PRN 10/25 0730 AC 10/28 PO 0112 Oxycodone HCl 15 MG Q4 HRS NEEDED PRN 10/25 0730 AC 10/28 PO 0847 Trimethobenzamide HCl 200 MG Q6P PRN 10/24 1430 AC IM Laboratory Tests 10/28/17 0725: Anion Gap 12, Estimated GFR > 60, BUN/Creatinine Ratio 21.7, CBC w Diff NO MAN DIFF REQ, RBC 3.89 L, MCV 87.1, MCH 29.2, MCHC 33.5, RDW 13.8, MPV 8.8, Gran % 54.9, Lymphocytes % 24.1, Monocytes % 17.5 H, Eosinophils % 3.1, Basophils % 0.4, Absolute Granulocytes 5.3, Absolute Lymphocytes 2.3, Absolute Monocytes 1.7 H, Absolute Eosinophils 0.3, Absolute Basophils 0 10/27/17 0735: Anion Gap 11, Estimated GFR > 60, BUN/Creatinine Ratio 23.3, CBC w Diff NO MAN DIFF REQ, RBC 3.93 L, MCV 86.9, MCH 29.4, MCHC 33.9, RDW 13.8, MPV 9.1, Gran % 68.1, Lymphocytes % 15.9 L, Monocytes % 14.5 H, Eosinophils % 1.0, Basophils % 0.5, Absolute Granulocytes 7.7 H, Absolute Lymphocytes 1.8, Absolute Monocytes 1.6 H, Absolute Eosinophils 0.1, Absolute Basophils 0.1 10/26/17 1057: CBC w Diff NO MAN DIFF REQ, RBC 4.34 L, MCV 87.2, MCH 29.4, MCHC 33.7, RDW 13.9 , MPV 9.2, Gran % 81.1 H, Lymphocytes % 8.3 L, Monocytes % 10.3 H, Eosinophils % 0.3, Basophils % 0, Absolute Granulocytes 12.6 H, Absolute Lymphocytes 1.3, Absolute Monocytes 1.6 H, Absolute Eosinophils 0.1, Absolute Basophils 0 Microbiology 10/27 0210 URINE ROUT: Urine Culture - RES GRAM NEGATIVE RODS 10/27 2339 BLOOD: Blood Culture - RES 10/26 232 BLOOD: Blood Culture - RES 10/26 1419 STOOL: Clostridium difficile Toxin A & B - CAN Cancelled: NO SAMPLE COLLECTED 10/27 1199 STOOL: Stool Culture - RES Vital Signs Date Time Temp Pulse Resp B/P B/P Pulse O2 O2 Flow FiO2 Mean Ox Delivery Rate 10/29 799 Room Air 10/28 0620 98.6 61 22 132/60 94 Room Air 10/28 0205 98.4 79 20 138/72 91 Room Air 10/27 2200 98.8 90 20 140/64 93 Room Air 10/27 1900 98.1 87 20 136/66 93 Room Air 10/27 1800 98.1 88 18 136/66 10/27 1412 98.5 93 20 170/80 93 Intake & Output 10/28 1600 10/28 0800 10/28 0000 Intake Total 800 Output Total 500 1350 Balance -500 -550 Intake, Oral 800 Output, Urine 500 1350
--- NOTE | 2017-10-28 14:14 | PN- Orthopedic ---
Subjective Subjective: Patient doing much better today. Ambulated with walker in hallway with minimal assist. C/o right leg hamstring spasm and tightness and expected incisional pain. No fever/chills. Julieta. po. No N/V, SOB. + Flatus and voiding without difficulty. Review of Systems: Remarkable for the above complaints. Objective Vital Signs and I&Os Vital Signs Date Time Temp Pulse Resp B/P B/P Pulse O2 O2 Flow FiO2 Mean Ox Delivery Rate 10/29 799 Room Air 10/28 0620 98.6 61 22 132/60 94 Room Air 10/28 0205 98.4 79 20 138/72 91 Room Air 10/27 2200 98.8 90 20 140/64 93 Room Air 10/27 1900 98.1 87 20 136/66 93 Room Air 10/27 1800 98.1 88 18 136/66 10/27 1412 98.5 93 20 170/80 93 Intake & Output 10/28 1600 10/28 0810/28 0000 10/27 1600 10/27 0800 10/27 0000 Intake Total 800 780 100 100 Output Total 500 1350 1925 550 Balance -500 -550 780 -1825 -450 Intake, Oral 800 780 100 100 Number 1 0 Bowel Movements Output, Urine 500 1350 1925 550 Physical Exam General Appearance: well developed/nourished, alert, awake, anxious, mild distress Respiratory: normal breath sounds, no respiratory distress Cardiovascular: regular rate/rhythm Abdomen: normal bowel sounds, soft, non-tender Back: Incisions C/D/I. Dressings changed. Neurologic/Psychiatric: Neurovascularly stable with no worsening gross motor or sensory loss. Skin: intact, normal color, warm/dry Current Medications: Current Medications Sig/Thien Start time Last Medication Dose Route Stop Time Status Admin Acetaminophen 650 MG .STK-MED ONE 10/28 0344 DC PO 10/28 0345 Acetaminophen 650 MG Q4P PRN 10/24 1430 AC 10/28 PO 1342 Aspirin 81 MG DAILY 10/25 1453 AC 10/28 PO 0848 Atorvastatin Calcium 40 MG 1700 10/25 1700 AC 10/27 PO 1708 Bisacodyl 10 MG DAILY NEEDED PRN 10/24 1430 AC VA Calcium 600 MG BID 10/24 2200 AC 10/28 PO 0847 Cholecalciferol 1,000 IU DAILY 10/25 1000 AC 10/28 PO 0847 Docusate Sodium 100 MG TID 10/24 1600 AC 10/28 PO 0847 Lorazepam 0 Q1P PRN 10/25 1845 AC 10/28 IV 0244 Lorazepam 0.5 MG Q4 PRN 10/24 1445 AC 10/25 PO 10/31 1444 1933 Magnesium Hydroxide 30 ML Q8P PRN 10/24 1445 AC PO Multivitamins 1 TAB DAILY 10/25 1000 AC 10/28 PO 0847 Ondansetron HCl 4 MG Q6P PRN 10/24 1430 AC IV Oxycodone HCl 10 MG Q4 HRS NEEDED PRN 10/25 0730 AC 10/28 PO 0112 Oxycodone HCl 15 MG Q4 HRS NEEDED PRN 10/25 0730 AC 10/28 PO 0847 Trimethobenzamide HCl 200 MG Q6P PRN 10/24 1430 AC IM Results Last 48 Hours of Labs: Laboratory Tests 10/28 10/27 0725 0735 Chemistry Sodium (137 - 145 mmol/L) 134 L 135 L Potassium (3.5 - 5.1 mmol/L) 3.8 3.8 Chloride (98 - 107 mmol/L) 91 L 93 L Carbon Dioxide (22 - 30 mmol/L) 31 H 31 H Anion Gap (5 - 16) 12 11 BUN (9 - 20 mg/dL) 13 14 Creatinine (0.7 - 1.2 mg/dL) 0.6 L 0.6 L Estimated GFR (>60 ml/min) > 60 > 60 BUN/Creatinine Ratio (7 - 25 %) 21.7 23.3 Hematology CBC w Diff NO MAN DIFF REQ NO MAN DIFF REQ WBC (4.8 - 10.8 /CUMM) 9.6 11.4 H RBC (4.70 - 6.10 /CUMM) 3.89 L 3.93 L Hgb (14.0 - 18.0 G/DL) 11.4 L 11.6 L Hct (42 - 52 %) 33.9 L 34.2 L MCV (80.0 - 94.0 FL) 87.1 86.9 MCH (27.0 - 31.0 PG) 29.2 29.4 MCHC (33.0 - 37.0 G/DL) 33.5 33.9 RDW (11.5 - 14.5 %) 13.8 13.8 Plt Count (130 - 400 /CUMM) 252 188 MPV (7.4 - 10.4 FL) 8.8 9.1 Gran % (42.2 - 75.2 %) 54.9 68.1 Lymphocytes % (20.5 - 51.1 %) 24.1 15.9 L Monocytes % (1.7 - 9.3 %) 17.5 H 14.5 H Eosinophils % (0 - 5 %) 3.1 1.0 Basophils % (0.0 - 2.0 %) 0.4 0.5 Absolute Granulocytes (1.4 - 6.5 /CUMM) 5.3 7.7 H Absolute Lymphocytes (1.2 - 3.4 /CUMM) 2.3 1.8 Absolute Monocytes (0.10 - 0.60 /CUMM) 1.7 H 1.6 H Absolute Eosinophils (0.0 - 0.7 /CUMM) 0.3 0.1 Absolute Basophils (0.0 - 0.2 /CUMM) 0 0.1 Assessment/Plan Assessment/Plan Assessment: 1. S/p PLDF with ICBG L3-S1 2. Atelectasis Plan: Ambulate with Nursing today with right knee immobilizer Continue Roxicodone and Tylenol Ice prn pain Plan D/C to hotel tomorrow once cleared by PT/Medicine Problem List: 1. TIA (transient ischemic attack) 2. COPD (chronic obstructive pulmonary disease) 3. PVD (peripheral vascular disease) 4. Hypertension 5. Hyperlipidemia 6. Spinal stenosis of lumbar region at multiple levels Core Measures Venous Thromboembolism VTE Risk Factors Surgery No Mechanical VTE Prophylaxis d/t N/A MechProphylax Ordered No VTE Pharm Prophylaxis d/t Surgical Contraindication Attending MD Review Statement Attending Statement Attending MD Statement: discuss w/resident/PA/PUMP RUNNER, agreed w/resident/PA/PUMP RUNNER
[2017-10-28 15:10] VITALS: BP 150/70
[2017-10-28 22:00] VITALS: BP 150/64
[2017-10-28 22:39] VITALS: BP 150/64
[2017-10-29] VITALS (8 sets, daily range): BP systolic 132–140; BP diastolic 60–70
--- NOTE | 2017-10-29 07:53 | PN- Orthopedic ---
Subjective Subjective: POD #5 s/p L3-S1 lumbar laminectomy with fusion. Complains he was able to walk prior to surgery but cannot walk now. Per NS PA report, Mirian Moy ambulated with patient yesterday and he had no issues with ambulation. Patient complains of pain this morning, and insomnia overnight. States he will call the police today if he is made to leave hospital. Objective Vital Signs and I&Os Vital Signs Date Time Temp Pulse Resp B/P B/P Pulse O2 O2 Flow FiO2 Mean Ox Delivery Rate /03 2836 98.1 66 20 132/66 94 Room Air 04/ 0600 98.1 66 20 132/66 04/ 0200 98.0 70 20 140/60 / 2239 97.9 81 20 150/64 95 Room Air / 2200 97.9 81 20 150/64 / 1510 98.1 83 20 150/70 94 Intake & Output 04/ 1600 04/ 0800 / 0000 / 1600 10/28 0800 10/28 0000 Intake Total 250 1200 880 800 Output Total 1150 900 50 500 1350 Balance -900 300 830 -500 -550 Intake, IV 10 Intake, Oral 240 1200 880 800 Number 1 0 Bowel Movements Output, Urine 1150 900 50 500 1350 Physical Exam: Gen: AAOx3 in NAD Cor: S1+S2+ Lungs: CTA alanna Back: incisional dressing removed/replaced. No surrounding erythema or drainage noted. No tenderness to palpation. Abd: soft, NT, ND +Bs x4 Ext: palpable DP pulses alanna. Sensation grossly intact to alanna LEs. Dorsiflexion /plantar flexion 5/5. No edema to alanna lower extremities. Assessment/Plan Assessment/Plan A: POD #5 s/p L3-S1 lumbar laminectomy and fusion; AVSS Plan: PT to re-eval today. Can order knee immobilizer for right leg if necessary. Patient asking to speak with Dr. Benavidez directly. Likely d/c today vs tomorrow pending discussion with NS attending. Core Measures Venous Thromboembolism VTE Risk Factors Surgery No Mechanical VTE Prophylaxis d/t N/A MechProphylax Ordered No VTE Pharm Prophylaxis d/t Surgical Contraindication
--- NOTE | 2017-10-29 09:31 | Surgical Discharge Summary ---
Visit Information Visit Dates Admission Date: 10/24/17 Discharge Date: 10/29/17 History of Present Illness Chief Complaint: back pain *refer to h&p for details Medical History Blood Transfusion Hx: No Neurological: TIA Cardiovascular: hypertension, hyperlipidemia, PVD Musculoskeletal: chronic back pain, disk herniation, degen joint disease, osteoarthritis, sciatica, spinal stenosis Psychiatric: alcohol dependence History of MRSA: No History of VRE: No History of CDIFF: No Isolation History: Standard Influenza Vaccine: 10/24/17 Surgical History Pertinent Surgical History: s/p repair of fingers secondary to trauma Family History Relations & Conditions If Any: MOTHER, , Age 94; Cause: Diabetes. FATHER, ; Cause: Unknown cause of morbidity or mortality. SISTER (Diabetes). Psychosocial History Where Do You Live? Home Who Do You Live With? Significant Other Services at Home: None What is Your Primary Language? [place] ETOH Use: heavy use (3-4 beers/day) Review of Systems: see h&p Hospital Course Course Attending Physician: Gasper Benavidez MD Primary Care Physician: Unknown Hospital Course: 56yoM who underwent below detailed elective ortho-spine procedure due to severe spinal stenosis and foraminal stenosis L3-4, L4-5, and moderate stenosis L5-S1. Tolerated procedure well, recovered on med/surg floor. Evaluated and treated by PT. Cleared for home health services dc. Refer to neurosurg progress notes for further detail. Allergies: Coded Allergies: No Known Allergies (10/16/17) Significant Procedures: Surgery Date: 10/24/17 Name of Procedure: Lumbar laminectomies L3 4 4551, bilateral lateral intertransverse process fusion L3 to S1 bilateral. Harvesting of morselized iliac crest right posterior iliac crest. Reconstruction of crest with Master graft. Use of fluoroscopy. neuro lysis neuro lysis right side L3 and IV nerve roots Pre-Operative Diagnosis: Surgeon/High School Guidance Counselor: Gasper Benavidez MD. Kwadwo Coffman M.D. Disposition Summary Disposition Principal Diagnosis: Severe spinal stenosis and foraminal stenosis L3-4,L4-5, and moderate stenosis L5-S1 Additional Diagnosis: same, sp L3-S1 lami and fusion Discharge Disposition: home health services Discharge Instructions General Discharge Information Code Status: Full Code Patient's Diet: resume regular healthy diet Patient's Activity: as tolerated, no strenous activity. use knee immobilizer to rle as needed. Follow-Up Instructions/Appts: Call to schedule fu appt with Dr. Benavidez Medications at Discharge Discharge Medications: Start taking the following new medications: Atorvastatin Calcium (Atorvastatin Calcium) 40 MG TABLET 40 Milligram ORAL 5 PM Qty = 30 No Refills Aspirin (Aspirin*) 81 MG TAB.CHEW 81 Milligram ORAL DAILY Qty = 30 No Refills Acetaminophen (Tylenol Extra Strength) 500 MG TABLET 1 Tablet ORAL THREE TIMES DAILY as needed for TEMP>101 Qty = 90 No Refills Bisacodyl (Dulcolax) 10 MG SUPP.RECT 1 Suppository RECTAL DAILY as needed for CONSTIPATION Qty = 10 No Refills Calcium Carbonate/Vitamin D3 (Os-Devyn 500+D3 Caplet) 500 MG-200 TABLET 1 Tablet ORAL TWICE DAILY Qty = 60 No Refills Cholecalciferol (Vitamin D3) 1,000 UNIT TABLET 1 Tablet ORAL DAILY Qty = 30 No Refills Docusate Sodium (Colace) 100 MG CAPSULE 1 Capsule ORAL TWICE DAILY as needed for CONSTIPATION Qty = 60 No Refills Magnesium Hydroxide (Milk Of Magnesia) 400 MG/5 ML ORAL.SUSP 5 Milliliters ORAL EVERY 8 HOURS NEEDED as needed for CONSTIPATION Qty = 300 No Refills Multiple Vitamin (Multivitamins) 1 EACH TABLET 1 Tablet ORAL DAILY Qty = 30 No Refills Oxycodone HCl (Roxicodone) 15 MG TABLET 0.5-1 Tablet ORAL Q4-6P as needed for PAIN Qty = 90 No Refills
--- NOTE | 2017-10-29 11:50 | PN- Orthopedic ---
Subjective Subjective: Patient c/o expected postop incisional pain. + right leg cramps. Julieta pain meds and ambulating with PT with minimal assist. + Flatus. + Voiding without difficulty. No fever/chills. No SOB, CP. Review of Systems: Remarkable for the above complaints. Objective Vital Signs and I&Os Vital Signs Date Time Temp Pulse Resp B/P B/P Pulse O2 O2 Flow FiO2 Mean Ox Delivery Rate 10/29 1113 98.1 80 20 140/70 96 / 1000 98.1 66 20 132/66 10/29 0800 98.1 66 20 132/66 / 0636 98.1 66 20 132/66 94 Room Air 10/29 0600 98.1 66 20 132/66 10/29 0200 98.0 70 20 140/60 10/28 2239 97.9 81 20 150/64 95 Room Air 10/28 2200 97.9 81 20 150/64 10/28 1510 98.1 83 20 150/70 94 Intake & Output 10/29 1600 10/29 0800 10/29 0000 10/28 1600 10/28 0800 10/28 0000 Intake Total 7362 790 6915 880 800 Output Total 1150 900 50 500 1350 Balance 1000 -900 300 830 -500 -550 Intake, IV 10 Intake, Oral 7960 761 0249 880 800 Number 2 1 0 Bowel Movements Output, Urine 1150 900 50 500 1350 Physical Exam General Appearance: well developed/nourished, alert, awake, anxious Respiratory: normal breath sounds, no respiratory distress Cardiovascular: regular rate/rhythm Abdomen: normal bowel sounds, soft, non-tender Back: Incision C/D/I. Neurologic/Psychiatric: Neurovascularly stable with no new or worsening gross motor or sensory loss. Skin: intact, normal color, warm/dry Current Medications: Current Medications Sig/Thien Start time Last Medication Dose Route Stop Time Status Admin Acetaminophen 650 MG .STK-MED ONE 10/28 1328 DC PO 10/28 1329 Acetaminophen 650 MG Q4P PRN 10/24 1430 AC 10/28 PO 1342 Aspirin 81 MG DAILY 10/25 1453 AC 10/29 PO 0754 Atorvastatin Calcium 40 MG 1700 10/25 1700 AC 10/28 PO 1658 Bisacodyl 10 MG DAILY NEEDED PRN 10/24 1430 AC MO Calcium 600 MG BID 10/24 2200 AC 10/29 PO 0754 Cholecalciferol 1,000 IU DAILY 10/25 1000 AC 10/29 PO 0753 Docusate Sodium 100 MG TID 10/24 1600 AC 10/29 PO 0753 Lorazepam 0 Q1P PRN 10/25 1845 AC 10/28 IV 0244 Lorazepam 0.5 MG Q4 PRN 10/24 1445 AC 10/29 PO 10/31 1444 0015 Magnesium Hydroxide 30 ML Q8P PRN 10/24 1445 AC PO Multivitamins 1 TAB DAILY 10/25 1000 AC 10/29 PO 0753 Ondansetron HCl 4 MG Q6P PRN 10/24 1430 AC IV Oxycodone HCl 10 MG Q4 HRS NEEDED PRN 10/25 0730 AC 10/28 PO 0112 Oxycodone HCl 15 MG Q4 HRS NEEDED PRN 10/25 0730 AC 10/29 PO 075 Trimethobenzamide HCl 200 MG Q6P PRN 10/24 1430 AC IM Results Last 48 Hours of Labs: Laboratory Tests 10/28 724 Chemistry Sodium (137 - 145 mmol/L) 134 L Potassium (3.5 - 5.1 mmol/L) 3.8 Chloride (98 - 107 mmol/L) 91 L Carbon Dioxide (22 - 30 mmol/L) 31 H Anion Gap (5 - 16) 12 BUN (9 - 20 mg/dL) 13 Creatinine (0.7 - 1.2 mg/dL) 0.6 L Estimated GFR (>60 ml/min) > 60 BUN/Creatinine Ratio (7 - 25 %) 21.7 Hematology CBC w Diff NO MAN DIFF REQ WBC (4.8 - 10.8 /CUMM) 9.6 RBC (4.70 - 6.10 /CUMM) 3.89 L Hgb (14.0 - 18.0 G/DL) 11.4 L Hct (42 - 52 %) 33.9 L MCV (80.0 - 94.0 FL) 87.1 MCH (27.0 - 31.0 PG) 29.2 MCHC (33.0 - 37.0 G/DL) 33.5 RDW (11.5 - 14.5 %) 13.8 Plt Count (130 - 400 /CUMM) 252 MPV (7.4 - 10.4 FL) 8.8 Gran % (42.2 - 75.2 %) 54.9 Lymphocytes % (20.5 - 51.1 %) 24.1 Monocytes % (1.7 - 9.3 %) 17.5 H Eosinophils % (0 - 5 %) 3.1 Basophils % (0.0 - 2.0 %) 0.4 Absolute Granulocytes (1.4 - 6.5 /CUMM) 5.3 Absolute Lymphocytes (1.2 - 3.4 /CUMM) 2.3 Absolute Monocytes (0.10 - 0.60 /CUMM) 1.7 H Absolute Eosinophils (0.0 - 0.7 /CUMM) 0.3 Absolute Basophils (0.0 - 0.2 /CUMM) 0 Assessment/Plan Assessment/Plan Assessment: S/p PLDF L3-S1 with ICBG Plan: D/C Home today Continue Roxicodone prn Ambulate with walker. Do's and Don'ts explained. Disch. Instr. given. Will F/U as outpatient. Problem List: 1. TIA (transient ischemic attack) 2. COPD (chronic obstructive pulmonary disease) 3. PVD (peripheral vascular disease) 4. Hypertension 5. Hyperlipidemia 6. Spinal stenosis of lumbar region at multiple levels Core Measures Venous Thromboembolism VTE Risk Factors Surgery No Mechanical VTE Prophylaxis d/t N/A MechProphylax Ordered No VTE Pharm Prophylaxis d/t Surgical Contraindication Attending MD Review Statement Attending Statement Attending MD Statement: examined this patient, discuss w/resident/PA/WASHING MACHINE OPERATOR, agreed w/resident/PA/WASHING MACHINE OPERATOR
--- NOTE | 2017-10-29 12:00 | PN- Orthopedic ---
Subjective Subjective: See documented note in chart by Dr. Benavidez Objective Vital Signs and I&Os Vital Signs Date Time Temp Pulse Resp B/P B/P Pulse O2 O2 Flow FiO2 Mean Ox Delivery Rate 10/29 1113 98.1 80 20 140/70 96 /09 1000 98.1 66 20 132/66 10/29 0800 98.1 66 20 132/66 / 0636 98.1 66 20 132/66 94 Room Air 10/29 0600 98.1 66 20 132/66 / 0200 98.0 70 20 140/60 10/28 2239 97.9 81 20 150/64 95 Room Air 10/28 2200 97.9 81 20 150/64 10/28 1510 98.1 83 20 150/70 94 Intake & Output 10/29 1600 10/29 0800 10/29 0000 10/28 1600 10/28 0800 10/28 0000 Intake Total 2361 419 0071 880 800 Output Total 1150 900 50 500 1350 Balance 1000 -900 300 830 -500 -550 Intake, IV 10 Intake, Oral 1653 326 1511 880 800 Number 2 1 0 Bowel Movements Output, Urine 1150 900 50 500 1350 Assessment/Plan Assessment/Plan Assessment: S/p PLDF L3-S1 with ICBG Plan: Ambulate with PT Case management consult re: STR Continue Roxicodone prn pain. Will F/U in am Appreciate Medicine recommendations Core Measures Venous Thromboembolism VTE Risk Factors Surgery No Mechanical VTE Prophylaxis d/t N/A MechProphylax Ordered No VTE Pharm Prophylaxis d/t Surgical Contraindication Attending MD Review Statement Attending Statement Attending MD Statement: examined this patient, discuss w/resident/PA/RESISTANCE MACHINE WELDER SETTER, agreed w/resident/PA/RESISTANCE MACHINE WELDER SETTER
--- NOTE | 2017-10-29 14:09 | PN- Medicine Consult ---
See Addendum Assessment/PlanMedical Consult Assessment/Plan Assessment: Assessment Status post L3 S1 laminectomy and fusion Back pain; right leg pain Postoperative fever now resolved Asymptomatic bacteriuria Bibasilar atelectasis Plan: Plan No indication for antibiotic therapy Incentive spirometry If Patient developed fever again he may need oral antibiotics for possible UTI Given that he is currently afebrile and his fever only was transient, will not prescribe antibiotic at this moment Consider diazepam 5 mg every 8 hours oral and Neurontin for spasm and pain control respectively; other option would be to add Flexeril when necessary And Neurontin 100 mg 3 times a day for pain control Consider PT therapy at home, Patient is not stable for discharge given significant pain and inability to ambulate Problem List: 1. S/P laminectomy with spinal fusion Subjective Subjective: Patient seen and examin, complain of pain in the lower back, difficulty ambulating even with the walker, pain with bowel movement. He denies any SOB, fever, no dysuria. Vitals stable, no events overnight Review of Systems Constitutional: Reports: no symptoms. Genitourinary: Reports: no symptoms, dysuria. Musculoskeletal: Reports: back pain. Objective Last 24 Hrs of Vital Signs/I&O Vital Signs Date Time Temp Pulse Resp B/P B/P Pulse O2 O2 Flow FiO2 Mean Ox Delivery Rate 10/29 1400 98.1 66 20 132/66 10/29 1200 98.1 66 20 132/66 10/29 1113 98.1 80 20 140/70 96 / 1000 98.1 66 20 132/66 10/29 0800 98.1 66 20 132/66 10/29 0636 98.1 66 20 132/66 94 Room Air 10/29 0600 98.1 66 20 132/66 10/29 0200 98.0 70 20 140/60 10/28 2239 97.9 81 20 150/64 95 Room Air 10/28 2200 97.9 81 20 150/64 Intake & Output 10/29 1600 10/29 0800 10/29 0000 Intake Total 9451 194 3604 Output Total 1150 900 Balance 1740 -900 300 Intake, IV 10 Intake, Oral 0257 741 2426 Number 2 1 Bowel Movements Output, Urine 1150 900 Physical Exam General Appearance: well developed/nourished, no apparent distress, alert, moderate distress Cardiovascular: regular rate/rhythm, normal peripheral pulses Respiratory: normal breath sounds, chest non-tender, no respiratory distress Abdomen: normal bowel sounds, soft, non-tender Extremities: normal inspection Current Medications: Current Medications Sig/Thien Start time Last Medication Dose Route Stop Time Status Admin Acetaminophen 650 MG Q4P PRN 04 1430 DCD 04 PO 1342 Aspirin 81 MG DAILY 10/25 1453 DCD 10/29 PO 0754 Atorvastatin Calcium 40 MG 1700 10/25 1700 DCD 10/28 PO 1658 Bisacodyl 10 MG DAILY NEEDED PRN 10/24 1430 DCD NC Calcium 600 MG BID 10/24 2200 DCD 10/29 PO 0754 Cholecalciferol 1,000 IU DAILY 10/25 1000 DCD 10/29 PO 0753 Docusate Sodium 100 MG TID 10/24 1600 DCD 10/29 PO 0753 Lorazepam 0 Q1P PRN 10/25 1845 DCD 10/28 IV 0244 Lorazepam 0.5 MG Q4 PRN 10/24 1445 DCD 10/29 PO 10/31 1444 0015 Magnesium Hydroxide 30 ML Q8P PRN 10/24 1445 DCD PO Multivitamins 1 TAB DAILY 10/25 1000 DCD 10/29 PO 0753 Ondansetron HCl 4 MG Q6P PRN 10/24 1430 DCD IV Oxycodone HCl 10 MG Q4 HRS NEEDED PRN 10/25 0730 DCD 10/28 PO 0112 Oxycodone HCl 15 MG Q4 HRS NEEDED PRN 10/25 0730 DCD 10/29 PO 1304 Trimethobenzamide HCl 200 MG Q6P PRN 10/24 1430 DCD IM Results Last 24 Hrs Lab/Lane Results: No labs
== END 2017-10-29 15:46 | DRG 460 ==
LOC: SDA 02:36 → ENRESERV 13:54 → ENTRNSPT 14:38 → EDTRNSPT 14:46 → EDTRNSPTSTS 14:46 → EDTRNSPT 14:49 → 2NA 15:04 → CMPTRNSPT 15:15 → ENPENDDIS 10-29 11:14 → 2NA 10-29 15:46
PROVIDERS: Orthopaedic Surgery Orthopaedic Surgery of the Spine; Physician Assistant; Physician Assistant Surgical
PROC: 0SG1071 Fusion of 2 or more Lumbar Vertebral Joints with Autologous Tissue Substitute, Posterior Approach, Posterior Column, Open Approach (ICD-10-PCS; principal; 2017-10-24)
PROC: 01NB0ZZ Release Lumbar Nerve, Open Approach (ICD-10-PCS; principal; 2017-10-24)
PROC: 0QB30ZZ Excision of Left Pelvic Bone, Open Approach (ICD-10-PCS; principal; 2017-10-24)
PROC: 0SG3071 Fusion of Lumbosacral Joint with Autologous Tissue Substitute, Posterior Approach, Posterior Column, Open Approach (ICD-10-PCS; principal; 2017-10-24)
PROC: 0QB00ZZ Excision of Lumbar Vertebra, Open Approach (ICD-10-PCS; principal; 2017-10-24)
DX: M48.07 Spinal stenosis, lumbosacral region (principal); E78.5 Hyperlipidemia, unspecified; I10 Essential (primary) hypertension; J44.9 Chronic obstructive pulmonary disease, unspecified; M19.90 Unspecified osteoarthritis, unspecified site; Z86.73 Personal history of transient ischemic attack (TIA), and cerebral infarction without residual deficits; F17.210 Nicotine dependence, cigarettes, uncomplicated; Z79.82 Long term (current) use of aspirin; Z79.891 Long term (current) use of opiate analgesic; I73.9 Peripheral vascular disease, unspecified; R73.03 Prediabetes; F10.10 Alcohol abuse, uncomplicated; Z86.718 Personal history of other venous thrombosis and embolism
CPT/HCPCS: 2NAP; 36415; 36592; 71045; 72020; 82436; 87040; 87045; 87086; 88304; 97116-GO; 97161-GP; 97530-GO; J0690; J2405; J3250; J3490; J7120; Q2036